=== PATIENT | female | born 1970 | race Caucasian/White ===

== ENCOUNTER → 2016-10-13 | Outpatient (CLI) | payer BC ==
--- NOTE | 2016-10-14 10:05 | CR ---
EXAMINATION: Lumbar spine HISTORY: Low back pain COMPARISON: None TECHNIQUE: AP and lateral views FINDINGS: Disc space narrowing is noted at L4-L5 and L5-S1. The lumbar spinal alignment appears othe rwise normal. Vertebral body heights appear grossly maintained. Early marginal osteophytes are noted . No fracture or acute osseous abnormality. The SI joints are symmetric. Lap band is partially visua lized. Essure devises noted. Bone mineralization is normal. IMPRESSION: Degenerative changes without acute findings.
== END ==
LOC: MW.CHFP 15:49
PROVIDERS: ATTEND Physician Assistant
DX: M54.5 Low back pain (principal); M47.817 Spondylosis without myelopathy or radiculopathy, lumbosacral region
CPT/HCPCS: 72100; 72100-26